=== PATIENT | female | born 1995 | race Caucasian/White ===

== ENCOUNTER → 2020-10-26 | Outpatient (REF) ==
[~2020-10-26] MED LIST: DICLEGIS PO
== END ==
LOC: COL.LAB 08:01
DX: U07.1 COVID-19 (principal)

== ENCOUNTER 2020-10-28 21:54 | Emergency (ER) | payer MEDICAID ==
[~2020-10-28] VITALS: Ht 160 cm; Wt 104.5 kg
[2020-10-28 22:07] VITALS: TEMP 98.3
[2020-10-28 23:34] LABS: BASO % 0.3 % (0.0-2.0); EOS # 0.2 (0.0-0.7); EOS % 2.2 % (0-4.0); GRAN % 57.4 % (42.2-75.2); HEMATOCRIT 46.9 % (37.0-47.0); HEMOGLOBIN 15.5 g/dl (12.5-16.0); LYMPH % 29.2 % (20.0-51.0); MEAN CELL VOLUME 83 fl (80.0-100.0); MEAN CORPUSCULAR HEMOGLOBIN 27 pg (27.0-31.0); MEAN CORPUSCULAR HGB CONC 33 g/dl (33.0-37.0); MEAN PLATELET VOLUME 10.5 fl (7.4-10.4); MONO # 0.7 (0.1-0.6); MONO % 10.3 % (1.7-9.3); PLATELET COUNT 313 K/mm3 (130-400); RED BLOOD COUNT 5.67 M/mm3 (4.10-5.30); REDCELL DISTRIBUTION WIDTH-CV 13.8 % (11.5-14.5)
[2020-10-29 02:53] VITALS: BP 135/83; PULSE 84
[2020-10-30] MEDS ORDERED: DICLEGIS PO (14:06)
== END 2020-10-29 02:53 | disposition home or self-care (01) ==
LOC: COL.ER 21:54
PROVIDERS: Personal Emergency Response Attendant
DX: U07.1 COVID-19 (principal)
CPT/HCPCS: J2405; J7030

== ENCOUNTER 2020-10-30 10:41 | Emergency (ER) | payer MEDICAID ==
[~2020-10-30] VITALS: Ht 160 cm; Wt 104.5 kg
[2020-10-30 11:37] LABS: BASO % 0.2 % (0.0-2.0); EOS % 0.2 % (0-4.0); GRAN # 3.4 (1.4-6.5); GRAN % 61.5 % (42.2-75.2); HEMATOCRIT 44.6 % (37.0-47.0); HEMOGLOBIN 14.7 g/dl (12.5-16.0); LYMPH # 1.6 (1.2-3.4); MEAN CELL VOLUME 83 fl (80.0-100.0); MEAN CORPUSCULAR HEMOGLOBIN 28 pg (27.0-31.0); MEAN CORPUSCULAR HGB CONC 33 g/dl (33.0-37.0); MEAN PLATELET VOLUME 10.3 fl (7.4-10.4); MONO # 0.5 (0.1-0.6); MONO % 9.7 % (1.7-9.3); PLATELET COUNT 322 K/mm3 (130-400); RED BLOOD COUNT 5.35 M/mm3 (4.10-5.30); REDCELL DISTRIBUTION WIDTH-CV 13.4 % (11.5-14.5)
[2020-10-30 12:11] LABS: ALBUMIN 4.6 gm/dL (3.5-5.0); BILIRUBIN,TOTAL 0.9 mg/dL (0.0-1.0); CALCIUM 9.6 mg/dL (8.4-10.2); CREATININE, serum 0.45 (0.52-1.25); POTASSIUM 3.6 mmol/L (3.4-5.0); TOTAL PROTEIN 8.5 gm/dL (6.4-8.2)
[2020-10-30] MEDS ORDERED: DICLEGIS PO (14:06)
[2020-10-30 14:25] VITALS: BP 137/88; PULSE 82; TEMP 98
== END 2020-10-30 14:28 | disposition home or self-care (01) ==
LOC: COL.ER 10:41
PROVIDERS: Emergency Medicine
DX: O98.511 Other viral diseases complicating pregnancy, first trimester (principal); U07.1 COVID-19; Z3A.09 9 weeks gestation of pregnancy
CPT/HCPCS: J2060; J2765; J7120